=== PATIENT | female | born 1980 | race Caucasian/White ===

== ENCOUNTER 2023-11-03 19:42 | Emergency (ER) | payer SELFPAY ==
[~2023-11-03] VITALS: Ht 165.1 cm; Wt 72.7 kg
[2023-11-03 19:48] VITALS: BP 142/99; PULSE 73; RESP 16; TEMP 98; O2SAT 94
== END 2023-11-03 20:34 ==
LOC: ER 19:43
DX: F10.129 Alcohol abuse with intoxication, unspecified (principal); F17.200 Nicotine dependence, unspecified, uncomplicated; Z72.89 Other problems related to lifestyle; Z98.890 Other specified postprocedural states; V89.2XXA Person injured in unspecified motor-vehicle accident, traffic, initial encounter; Y93.89 Activity, other specified; Y92.488 Other paved roadways as the place of occurrence of the external cause; Y99.8 Other external cause status; Y90.9 Presence of alcohol in blood, level not specified
CPT/HCPCS: 99283